=== PATIENT | female | born 1985 | race Caucasian/White ===

== ENCOUNTER 2023-12-18 18:42 | Emergency (ER) | payer MEDICAID ==
[~2023-12-18] VITALS: Ht 160 cm; Wt 81.2 kg
[2023-12-18] MEDS ORDERED: LIDOCAINE 1% 10 MG/ML, 20 ML MDV INJ ONE (19:00)
[2023-12-18 19:02] VITALS: BP_SYST 136; PULSE 74; RESP 18; TEMP 99.4; O2SAT 98
[2023-12-18] MEDS: DIPHTH,PERTUSS(ACELL),TET VAC 0.5 ML VIAL (Tdap) I.M. ONE (19:29)
[2023-12-18] MEDS: BACITRACIN ZINC 15 GM TOPICAL OINTMENT TP SCH (19:30)
[2023-12-18] MEDS ORDERED: BACITRACIN 1 GM OINT TP ONE (19:34)
[2023-12-18] MEDS: BACITRACIN 1 GM OINT TP ONE (19:38)
[2023-12-18 19:46] VITALS: BP_SYST 136; PULSE 74; RESP 18; TEMP 99.4; O2SAT 98
== END 2023-12-18 19:49 | disposition home or self-care (01) ==
LOC: SED 18:42
DX: S51.812A Laceration without foreign body of left forearm, initial encounter (principal); X58.XXXA Exposure to other specified factors, initial encounter; Y93.E9 Activity, other interior property and clothing maintenance; Y92.89 Other specified places as the place of occurrence of the external cause; Y99.8 Other external cause status
CPT/HCPCS: 90715; 99283